=== PATIENT | female | born 1955 | race Caucasian/White ===

== ENCOUNTER 2019-06-08 16:26 | Inpatient (IN) | payer BC ==
[~2019-06-08] VITALS: Ht 162.6 cm; Wt 56.7 kg
[2019-06-12] MEDS ORDERED: FLAGYL500MG PO (11:09)
[2019-06-12] MEDS ORDERED: INTESTINEX680 M1 PO (11:09)
[2019-06-12] MEDS ORDERED: CIPRO500 MG PO (11:09)
== END 2019-06-12 14:36 | disposition home or self-care (01) | DRG 392 ==
LOC: ER 16:26 → SEC-K 06-09 11:50 → SURH 06-09 11:50
PROVIDERS: ADMIT Internal Medicine
DX: K57.32 Diverticulitis of large intestine without perforation or abscess without bleeding (principal); E86.0 Dehydration; E87.8 Other disorders of electrolyte and fluid balance, not elsewhere classified; R10.32 Left lower quadrant pain; Z88.8 Allergy status to other drugs, medicaments and biological substances

== ENCOUNTER 2025-09-30 08:17 | Outpatient (CLI) | payer BC ==
[~2025-09-30 08:17] MED LIST: CIPRO500 MG PO; FLAGYL500MG PO; INTESTINEX680 M1 PO
== END 2025-09-30 08:21 | disposition home or self-care (01) ==
LOC: MAMO-SONO 08:17
DX: N64.4 Mastodynia (principal); Z12.39 Encounter for other screening for malignant neoplasm of breast

== ENCOUNTER 2025-10-22 10:40 | Outpatient (CLI) | payer BC | END 2025-10-22 10:41 | disposition home or self-care (01) | LOC: NUCLEAR 10:40 | DX: Z13.820 Encounter for screening for osteoporosis (principal); M81.0 Age-related osteoporosis without current pathological fracture ==